=== PATIENT | male | born 1965 | race Caucasian/White ===

== ENCOUNTER 2020-07-13 15:15 | Emergency (ER) | payer BC ==
--- NOTE | 2020-07-13 17:37 | EDM.PDOC ---
ED HPI GENERAL MEDICAL PROBLEM - General Chief Complaint: Back Pain or Injury Stated Complaint: spine and neck pain Time Seen by Provider: 07/13/20 17:06 Source of Information: Reports: Patient History Limitations: Reports: No Limitations - History of Present Illness INITIAL COMMENTS - FREE TEXT/NARRATIVE: HISTORY AND PHYSICAL: History of present illness: Patient is a 54-year-old male who presents to the ED today with concern of acute exacerbation of chronic back pain. Patient states he has had multiple surgeries on his back including different laminectomies, fusions, hip replacements. Patient states that he has his surgery done with the neurosurgeon Dr. Cornejo in [place] over several years. Patient states that he began having a flareup of his low back pain over the past 1 month and had a prescription for Ione in which he is used all of his medication from his primary care provider in [place]. Patient states that his back pain became worse this morning and he called Dr. Cornejo office and got an appointment for tomorrow at 3 PM. Patient denies any loss or retention of bowel bladder function or saddle anesthesia. Patient was given 90 tabs of Ione 10/325 to take TID, PRN approximately 1 month ago. His provider is in [place] as he lives there and travels back and forth to [place] for work. He also has an appointment with his PCP this Monday for further follow up with is back pain management. Patient denies fever, chills, chest pain, shortness of breath, or cough. Denies headache, neck stiff ness, change in vision, syncope, or near syncope. Denies nausea, vomiting, abdominal pain, diarrhea, constipation, or dysuria. Has not noted any blood in urine or stool. Patient has been eating and drinking appropriately. Review of systems: As per history of present illness and below otherwise all systems reviewed and negative. Past medical history: As per history of present illness and as reviewed below otherwise noncontributory. Surgical history: As per history of present illness and as reviewed below otherwise noncontributory. Social history: See social history for further information Family history: As per history of present illness and as reviewed below otherwise noncontributory. Physical exam: General: Patient is alert, oriented, and in no acute distress. Patient sitting comfortably on exam table. HEENT: Atraumatic, normocephalic, pupils equal and reactive bilaterally, negative for conjunctival pallor or scleral icterus, mucous membranes moist, TMs normal bilaterally, throat clear, neck supple, nontender, trachea midline. No drooling or trismus noted. No meningeal signs. No hot potato voice noted. Lungs: Clear to auscultation, breath sounds equal bilaterally, chest nontender. Heart: S1S2, regular rate and rhythm without overt murmur Abdomen: Soft, nondistended, nontender. Negative for masses or hepatosplenomegaly. Negative for costovertebral tenderness. Pelvis: Stable nontender. Genitourinary: Deferred. Rectal: Deferred. Skin: Intact, warm, dry. No lesions or rashes noted. Extremities/musculoskeletal: Scarring consistent with surgical history. No obvious deformity of the complete spine. No step-offs, crepitus, but does have pain with palpation of the lower thoracic spine. Patient does have full ROM of spine but pain with ROM of lower spine. Heel/toe gait intact. Patellar reflux intact bilaterally. Otherwise, atraumatic, negative for cords or calf pain. Neurovascular unremarkable. Neuro: Awake, alert, oriented. Cranial nerves II through XII unremarkable. Cerebellum unremarkable. Motor and sensory unremarkable throughout. Exam nonfocal. Notes: I did confirm that patient does have an appointment tomorrow with Dr. Cornejo, neurosurgeon at [facility] at 3 PM. Patient does have an empty prescription bottle of Ione 10/375 that was filled approximately 1 month ago by his primary care provider in [place]. Thoroughly discussed with patient that I would only be giving him a few tabs of this medication in order to make it to his appointment tomorrow with the neurosurgeon. Discussed the importance for follow-up with the neurosurgeon tomorrow as scheduled as well as his primary care provider. Voices understanding and is agreeable to plan of care. Denies any further questions or concerns at this time. Diagnostics: None Therapeutics: None Prescription: Ione 7.5/325 (4 tabs only)-thoroughly discussed with patient that would only be giving him enough refill/tabs of his Ione in order to make it to his appointment tomorrow which is at [address] Cornejo in [place], neurosurgery. Impression: Acute on chronic low back pain Plan: 1. When resting please lay on a flat firm surface. Limit your mobility to prevent muscle stiffness. Get up to ambulate/move around/gentle stretching multiple times throughout the day. May alternate heat and ice to painful areas. 2. Tylenol as needed for back pain. Take medication as prescribed. 3. Follow-up with your primary care provider and neurologist as scheduled and as discussed. Return to the ED as needed and as discussed. Definitive disposition and diagnosis as appropriate pending reevaluation and review of above. lower spine, Pain Score (Numeric/FACES): 8 - Related Data Allergies Allergy/AdvReac Type Severity Reaction Status Date / Time celecoxib [From Celebrex] Allergy Other Verified 07/13/20 16:16 gabapentin Allergy Hallucinati Verified 07/13/20 16:16 ons ketorolac [From Toradol] Allergy Respiratory Verified 07/13/20 16:16 Distress pregabalin [From Lyrica] Allergy Other Verified 07/13/20 16:16 tramadol Allergy Respiratory Verified 02/17/15 16:57 Depression Home Meds: Home Meds Hydrocodone/Acetaminophen [Hydrocodon-Acetaminoph 7.5-325] 1 each PO TID PRN #4 tablet 07/13/20 [Rx] Hydrocodone/Acetaminophen [Hydrocodone-Acetamin 10-325 mg] 1 tab PO TID PRN 07/13/20 [History] busPIRone [Buspar] 7.5 mg PO BID 07/13/20 [History] Past Medical History - Past Health History Medical/Surgical History: Denies Medical/Surgical History - Past Surgical History Musculoskeletal Surgical History: Reports: Joint Replacement, Other (See Below) Other Musculoskeletal Surgeries/Procedures:: Hip, 2 Spinal Surgery, Neck Surgery Social & Family History - Family History Family Medical History: Noncontributory - Tobacco Use Smoking Status *Q: Never Smoker - Recreational Drug Use Recreational Drug Use: No ED ROS GENERAL - Review of Systems Review Of Systems: Comprehensive ROS is negative, except as noted in HPI. ED EXAM, GENERAL - Physical Exam Exam: See Below (see dictation) Course - Vital Signs Last Recorded V/S: Last Vital Signs Temp 98.1 F 07/13/20 16:13 Pulse 69 07/13/20 16:13 Resp 16 07/13/20 16:13 BP Pulse Ox 97 07/13/20 16:13 Departure - Departure Time of Disposition: 17:34 Disposition: Home, Self-Care 01 Clinical Impression: Acute exacerbation of chronic low back pain - Discharge Information Prescriptions: Hydrocodone/Acetaminophen [Hydrocodon-Acetaminoph 7.5-325] 1 each PO TID PRN #4 tablet PRN Reason: Pain (Severe 7-10) Referrals: PCP,None [Primary Care Provider] - Forms: ED Department Discharge Additional Instructions: The following information is given to patients seen in the emergency department who are being discharged to home. This information is to outline your options for follow-up care. We provide all patients seen in our emergency department with a follow-up referral. The need for follow-up, as well as the timing and circumstances, are variable depending upon the specifics of your emergency department visit. If you don't have a primary care physician on staff, we will provide you with a referral. We always advise you to contact your personal physician following an emergency department visit to inform them of the circumstance of the visit and for follow-up with them and/or the need for any referrals to a consulting specialist. The emergency department will also refer you to a specialist when appropriate. This referral assures that you have the opportunity for follow-up care with a specialist. All of these measure are taken in an effort to provide you with optimal care, which includes your follow-up. Under all circumstances we always encourage you to contact your private physician who remains a resource for coordinating your care. When calling for follow-up care, please make the office aware that this follow-up is from your recent emergency room visit. If for any reason you are refused follow-up, please contact the [facility] Emergency Department at and asked to speak to the emergency department charge nurse. [facility] [address] [place] [address] [id number] [address] [id number] 1. When resting please lay on a flat firm surface. Limit your mobility to prevent muscle stiffness. Get up to ambulate/move around/gentle stretching multiple times throughout the day. May alternate heat and ice to painful areas. 2. Tylenol as needed for back pain. Take medication as prescribed. 3. Follow-up with your primary care provider and neurologist as scheduled and as discussed. Return to the ED as needed and as discussed. Sepsis Event Note (ED) - Evaluation Sepsis Screening Result: No Definite Risk - Focused Exam Vital Signs: Vital Signs Temp Pulse Resp Pulse Ox 07/13/20 16:13 98.1 F 69 16 97
[2020-07-13 19:57] VITALS: BP 116/83; PULSE 72
== END 2020-07-13 17:56 | disposition home or self-care (01) ==
LOC: MW.ED 15:15
DX: M54.5 Low back pain (principal); G89.29 Other chronic pain; Z88.8 Allergy status to other drugs, medicaments and biological substances; Z88.5 Allergy status to narcotic agent
CPT/HCPCS: 99282; 99283